=== PATIENT | male | born 1945 | race Caucasian/White ===

== ENCOUNTER → 2017-05-09 | Outpatient (CLI) | payer MEDICARE ==
[~2017-05-09] MED LIST: ASPI81CH6 CHEW; LIPI10TA PO; LOSA50TA PO; MULT1TAB46 PO
[2017-05-09 09:40] LABS: AUTOMATED NEUTROPHIL # 2.2 TH/MM3 (1.8-7.7); BASOPHIL % 0.6 % (0.0-2.0); EOSINOPHIL # 0.1 TH/MM3 (0-0.4); EOSINOPHIL % 2.6 % (0.0-4.0); HEMATOCRIT 42.9 % (39.0-51.0); HEMOGLOBIN 14.8 GM/DL (13.0-17.0); LYMPH % 30.7 % (9.0-44.0); LYMPHOCYTE # 1.3 TH/MM3 (1.0-4.8); MEAN CELL VOLUME 91.9 FL (80.0-100.0); MEAN CORPUSCULAR HEMOGLOBIN 31.8 PG (27.0-34.0); MEAN CORPUSCULAR HGB CONC 34.6 % (32.0-36.0); MEAN PLATELET VOLUME 9.7 FL (7.0-11.0); MONO % 13.2 % (0.0-8.0); MONOCYTE # 0.6 TH/MM3 (0-0.9); NEUT % 52.9 % (16.0-70.0); PLATELET COUNT 182 TH/MM3 (150-450); RED BLOOD COUNT 4.67 MIL/MM3 (4.50-5.90); WHITE BLOOD COUNT 4.2 TH/MM3 (4.0-11.0)
[2017-05-09 09:42] LABS: BILIRUBIN, URINE NEG (NEG); BLOOD, URINE NEG (NEG); GLUCOSE,URINE NEG (NEG); KETONE, URINE NEG (NEG); MUCUS URINE FEW /lpf (OCC); NITRITE,URINE NEG (NEG); PH, URINE 5.5 (5.0-8.5); URINE COLOR YELLOW (YELLW/STRAW); URINE LEUKOCYTE ESTERASE NEG (NEG)
--- NOTE | 2017-05-09 09:47 | RADRPT ---
EXAM DATE/TIME: 05/09/2017 09:34 [place] COMPARISON: No previous studies available for comparison. INDICATIONS : Evaluate for pneumonia, pneumothorax or communicable disease. Pre-op for resection descending colecto my. MEDICAL HISTORY : Hypertension. SURGICAL HISTORY : None. ENCOUNTER: Initial ACUITY: 1 day PAIN SCORE: 0/10 LOCATION: Bilateral chest FINDINGS: PA and lateral views of the chest demonstrate the lungs to be symmetrically aerated without evidence of mass, infiltrate or effusion. The cardiomediastinal contours are unremarkable. Osseous structure s are intact. CONCLUSION: No acute disease. Geovanni Carlson Jr., MD on May 09, 2017 at 9:44 Board Certified Radiologist. This report was verified electronically.
[2017-05-09 09:48] LABS: ALBUMIN 3.7 GM/DL (3.4-5.0); AST (GOT) 22 U/L (15-37); BICARBONATE 30.6 MEQ/L (21.0-32.0); BLOOD UREA NITROGEN 17 MG/DL (7-18); CALCIUM 8.8 MG/DL (8.5-10.1); CHLORIDE 109 MEQ/L (98-107); CREATININE 1.04 MG/DL (0.60-1.30); GLOMERULAR FILTRATION RATE 70 ML/MIN (>89); GLUCOSE,FASTING 100 MG/DL (74-99); SODIUM (NA) 142 MEQ/L (136-145)
[2017-05-09 09:49] LABS: ALT (GPT) 27 U/L (12-78)
[2017-05-09 09:51] LABS: ALKALINE PHOSPHATASE 84 U/L (45-117); TOTAL BILIRUBIN ADULT 0.5 MG/DL (0.2-1.0); TOTAL PROTEIN 7.3 GM/DL (6.4-8.2)
--- NOTE | 2017-05-09 22:58 | EKG ---
Date Performed: 05/09/2017 Time Performed: 08:53:16 PTAGE: 71 years EKG: Sinus bradycardia Non-specific ST/T wave changes NO PREVIOUS TRACING DOCTOR: Petra Gupta Interpretating Date/Time 05/09/2017 22:58:02
== END ==
LOC: CPRE 08:30
PROVIDERS: ATTEND Colon & Rectal Surgery
DX: Z79.01 Long term (current) use of anticoagulants (principal); Z01.811 Encounter for preprocedural respiratory examination; Z01.812 Encounter for preprocedural laboratory examination; Z01.810 Encounter for preprocedural cardiovascular examination; C20 Malignant neoplasm of rectum
CPT/HCPCS: 36415; 71046; 80053; 81001; 82378; 85025; 85610; 85730; 93005

== ENCOUNTER 2017-08-15 10:48 | Inpatient (IN) | payer MEDICARE ==
[~2017-08-15] VITALS: Ht 179.1 cm; Wt 93.0 kg
[2017-08-15] MEDS ORDERED: POVIDONE IODINE 5% (ANTISEPSIS KIT) 4 APPLICATIONS EACH NARE PRN (11:45)
[2017-08-15] MEDS ORDERED: SODIUM CHLORID 0.9% 500 ML IV PRN (11:45)
[2017-08-15] MEDS ORDERED: METRONIDAZOLE 500 MG/100 ML ISONTONIC SOLN IV SCH (11:45)
[2017-08-15] MEDS ORDERED: CHLORHEXIDINE GLUCONATE 2 % 1 PACK (2 CLOTHS) TOPICAL PRN (11:45)
[2017-08-15] MEDS ORDERED: ALVIMOPAN 12 MG CAPSULE - On Call PO SCH (11:45)
[2017-08-15] MEDS ORDERED: LACTATED RINGER'S 1000 ML IV PRN (11:45)
[2017-08-15] MEDS ORDERED: ceFAZolin 1,000 MG/NS 100 ML IV SCH ×2 (11:45)
[2017-08-15] MEDS ORDERED: METOPROLOL TARTRATE 25 MG TAB PO PRN (11:45)
[2017-08-15] MEDS ORDERED: GLYCOPYRROLATE 1 MG/5 ML SYRINGE IV PUSH ONE (12:00)
[2017-08-15] MEDS ORDERED: NEOSTIGMINE 5 MG/5 ML SYRINGE IV PUSH ONE (12:00)
[2017-08-15] MEDS ORDERED: LIDOCAINE HCL 1% PF 5 ML SYRINGE OTHER ONE (12:00)
[2017-08-15] MEDS ORDERED: hydrALAZINE HCL 20 MG/ML VIAL IV ONE (12:00)
[2017-08-15] MEDS ORDERED: DEXAMETHASONE SOD PHOS 4 MG/ML VIAL IV ONE (12:00)
[2017-08-15] MEDS ORDERED: PROPOFOL 200 MG/20 ML AMP IV ONE (12:00)
[2017-08-15] MEDS ORDERED: ROCURONIUM INJ 50 MG/5 ML SYRINGE IV PUSH ONE (12:00)
[2017-08-15] MEDS ORDERED: LABETALOL HCL 100 MG/20 ML VIAL IV ONE (12:00)
[2017-08-15 12:43] LABS: AUTOMATED NEUTROPHIL # 3.7 TH/MM3 (1.8-7.7); BASOPHIL % 0.4 % (0.0-2.0); EOSINOPHIL # 0.1 TH/MM3 (0-0.4); EOSINOPHIL % 2.6 % (0.0-4.0); HEMOGLOBIN 14.4 GM/DL (13.0-17.0); MEAN CELL VOLUME 89.6 FL (80.0-100.0); MEAN CORPUSCULAR HEMOGLOBIN 30.8 PG (27.0-34.0); MEAN CORPUSCULAR HGB CONC 34.3 % (32.0-36.0); MEAN PLATELET VOLUME 9.6 FL (7.0-11.0); MONO % 8.6 % (0.0-8.0); MONOCYTE # 0.5 TH/MM3 (0-0.9); NEUT % 69.4 % (16.0-70.0); PLATELET COUNT 211 TH/MM3 (150-450); RED BLOOD COUNT 4.68 MIL/MM3 (4.50-5.90); RED CELL DISTRIBUTION WIDTH 14.1 % (11.6-17.2); WHITE BLOOD COUNT 5.3 TH/MM3 (4.0-11.0)
[2017-08-15] MEDS ORDERED: DO NOT ADM ANY ANTICOAGULANT DRUGS PRN (14:42)
[2017-08-15] MEDS: PCA - TOTAL MG MORPHINE DELIVERED PER SHIFT SCH ×2 (14:45→21:24)
[2017-08-15] MEDS ORDERED: SODIUM CHLORIDE 0.9% FLUSH 10 ML FLUSH IV FLUSH PRN (14:45)
[2017-08-15] MEDS ORDERED: Post-op Orders (for Pharmacy) XX ONE (14:45)
[2017-08-15] MEDS ORDERED: POTASSIUM CHLOR 20 MEQ PREMIX 100 ML IV PRN (14:45)
[2017-08-15] MEDS ORDERED: ENALAPRILAT 1.25 MG/ML VIAL IV PUSH PRN (14:45)
[2017-08-15] MEDS ORDERED: MORPHINE SULFATE 30 MG/30 ML PCA IV SCH (14:45)
[2017-08-15] MEDS ORDERED: ZOLPIDEM TARTRATE 5 MG TAB PO PRN (14:45)
[2017-08-15] MEDS ORDERED: POTASSIUM CHLOR 40 MEQ PREMIX 100 ML IV PRN (14:45)
[2017-08-15] MEDS ORDERED: ONDANSETRON HCL 4 MG/2 ML VIAL IV PUSH PRN (14:45)
[2017-08-15] MEDS ORDERED: ACETAMINOPHEN/HYDROcodone 325 MG/5 MG TAB PO PRN ×2 (14:45)
[2017-08-15] MEDS ORDERED: KETOROLAC TROMETHAMINE 30 MG/ML (IVP) VIAL IVP PRN (14:45)
[2017-08-15] MEDS ORDERED: NALOXONE HCL 0.4 MG/ML AMP IV PUSH PRN (14:45)
[2017-08-15] MEDS ORDERED: BENZOCAINE 6 MG/MENTHOL 10 MG LOZENGE BUCCAL PRN (14:45)
[2017-08-15] MEDS ORDERED: *morphine SULFATE 4 MG/ML PERIprocedure ONLY ONE ×2 (14:58→15:09)
--- NOTE | 2017-08-15 15:28 | MP ---
cc: Gabo Tomlinson MD, Allan MD DATE OF OPERATION: 08/15/2017 PREOPERATIVE DIAGNOSIS: Diverting loop ileostomy. POSTOPERATIVE DIAGNOSIS: Diverting loop ileostomy. PROCEDURE PERFORMED: Takedown of ileostomy, small bowel resection with anastomosis and closure of ileostomy. ANESTHESIA: General endotracheal. SURGEON: Dr. Tomlinson. WORLD GEOGRAPHY TEACHER: Dr. Aguirre. ESTIMATED BLOOD LOSS: Minimal. OPERATIVE FINDINGS: This patient had a diverting ileostomy after having a low anterior resection for rectal cancer. At surgery, limited exploration of the abdominal cavity at the site of the ileostomy was done. There were several small bowel mesenteric adhesions to the proximal distal limb of the small bowel. These were dissected free and several mild adhesions to the abdominal wall, but these were dissected free as well. The proximal and distal small bowel above and below the stoma were divided and then anastomosis was done along the antimesenteric border of the bowel using Ethicon BENY 55 stapling device. OPERATIVE TECHNIQUE: The patient was placed on the table in the supine position. After adequate general endotracheal anesthesia, an elliptical incision was made vertically around the existing ileostomy and the dissection was taken down through the subcutaneous tissue to the rectus muscle fascia. The dissection was taken around the muscle and the peritoneal cavity was entered with the above-mentioned findings. The ileostomy site through the rectus muscle was fairly large and we were able to easily dissect the bowel free of the rectus muscle. The bowel was prolapsed out of the abdomen and there were several loops of small bowel mesentery really stuck to the proximal and distal limbs of the small bowel and these were dissected free with sharp dissection. Once this was done, we had adequate length and the small bowel mesentery was clamped, cut, and ligated and the proximal small bowel proximal to the ileostomy was divided with the Ethicon BENY 55 stapling device and the distal small bowel was divided between Roby clamps. Next, the anastomosis was created along the antimesenteric borders of the bowel using the Ethicon BENY 55 stapling device and then the enterotomy was closed with a TX-60 blue staple height stapling device. The opening in the mesentery was approximated with a running 3-0 Vicryl suture. Once hemostasis was obtained, the bowel was replaced in the abdominal cavity. Hemostasis was again checked and then the abdominal cavity was closed in layers using a single strand #1 PDS for the posterior rectus sheath and then the muscle layer was irrigated thoroughly with about 500 mL of saline solution and then the anterior rectus sheath was closed with a running single strand #1 PDS as well. The subcutaneous tissue was irrigated thoroughly with saline solution, aspirated dry using approximately 1 liter of saline solution. A relaxing incision was made just lateral to the incision to take the tension off the fascial closure. Once this was done, the skin was closed with running 3-0 Vicryl subcuticular suture and a dressing was applied. Sponge, needle and instrument counts were reported as correct. The estimated blood loss was minimal. The patient tolerated the procedure well and left the operating room in good condition. MD LUIS MIGUEL Freitas/GHADA , 02:50 PM , 03:27 PM [place]
[2017-08-15] MEDS ORDERED: *HYDROmorphone PF 0.5 MG/0.5 ML PERIprocedure ONLY ONE ×2 (15:29→15:45)
[2017-08-15 15:35] LABS: AUTOMATED NEUTROPHIL # 5.5 TH/MM3 (1.8-7.7); BASOPHIL % 0.2 % (0.0-2.0); EOSINOPHIL # 0.1 TH/MM3 (0-0.4); EOSINOPHIL % 1.6 % (0.0-4.0); HEMATOCRIT 40.9 % (39.0-51.0); HEMOGLOBIN 13.9 GM/DL (13.0-17.0); LYMPHOCYTE # 1.2 TH/MM3 (1.0-4.8); MEAN CELL VOLUME 90.9 FL (80.0-100.0); MEAN CORPUSCULAR HEMOGLOBIN 30.9 PG (27.0-34.0); MEAN PLATELET VOLUME 9.6 FL (7.0-11.0); MONO % 7.7 % (0.0-8.0); MONOCYTE # 0.6 TH/MM3 (0-0.9); NEUT % 74.5 % (16.0-70.0); PLATELET COUNT 195 TH/MM3 (150-450); RED CELL DISTRIBUTION WIDTH 14.4 % (11.6-17.2); WHITE BLOOD COUNT 7.4 TH/MM3 (4.0-11.0)
[2017-08-15] MEDS: D5-LR + KCL 20 MEQ INJ 1,000 ML IV SCH ×2 (15:45→21:24)
[2017-08-15 16:01] LABS: BICARBONATE 25.4 MEQ/L (21.0-32.0); CALCIUM 8.8 MG/DL (8.5-10.1)
[2017-08-15] MEDS: METOCLOPRAMIDE HCL 10 MG/2 ML VIAL IVS SCH ×2 (18:51→23:33)
[2017-08-15 20:00] VITALS: BP 110/59; PULSE 60; RESP 18; TEMP 97.9; O2SAT 93
[2017-08-15] MEDS: DEXT 5%-NACL 0.9% 1000 ML INJ 1,000 ML IV SCH (20:00)
[2017-08-15] MEDS: SODIUM CHLORIDE 0.9% FLUSH 10 ML FLUSH IV FLUSH SCH (21:23)
[2017-08-15] MEDS: FUROSEMIDE 20 MG/2 ML VIAL IV PUSH SCH (21:23)
[2017-08-15] MEDS: metroNIDAZOLE 500 MG INJ 100 ML IV SCH (21:24)
[2017-08-15] MEDS: ceFAZolin 2 GM PREMIX 50 ML IV SCH (21:24)
[2017-08-16] VITALS: BP 119/60; PULSE 65; RESP 18; TEMP 97.2; O2SAT 93
[2017-08-16] MEDS: DEXT 5%-NACL 0.9% 1000 ML INJ 1,000 ML IV SCH ×3 (01:03→13:44)
[2017-08-16 04:00] VITALS: BP 106/55; PULSE 62; RESP 18; TEMP 98.1; O2SAT 94
[2017-08-16] MEDS: D5-LR + KCL 20 MEQ INJ 1,000 ML IV SCH ×3 (04:09→22:20)
[2017-08-16] MEDS: ceFAZolin 2 GM PREMIX 50 ML IV SCH ×2 (04:09→13:25)
[2017-08-16] MEDS: PCA - TOTAL MG MORPHINE DELIVERED PER SHIFT SCH ×3 (04:10→22:00)
[2017-08-16] MEDS: METOCLOPRAMIDE HCL 10 MG/2 ML VIAL IVS SCH ×3 (04:10→17:11)
[2017-08-16] MEDS: metroNIDAZOLE 500 MG INJ 100 ML IV SCH ×2 (04:10→13:26)
[2017-08-16 07:25] LABS: AUTOMATED NEUTROPHIL # 10.4 TH/MM3 (1.8-7.7); BASOPHIL % 0.1 % (0.0-2.0); HEMATOCRIT 37.4 % (39.0-51.0); HEMOGLOBIN 12.8 GM/DL (13.0-17.0); LYMPH % 5.1 % (9.0-44.0); LYMPHOCYTE # 0.6 TH/MM3 (1.0-4.8); MEAN CELL VOLUME 89.7 FL (80.0-100.0); MEAN CORPUSCULAR HEMOGLOBIN 30.7 PG (27.0-34.0); MEAN CORPUSCULAR HGB CONC 34.3 % (32.0-36.0); MEAN PLATELET VOLUME 9.9 FL (7.0-11.0); MONO % 9.4 % (0.0-8.0); MONOCYTE # 1.1 TH/MM3 (0-0.9); NEUT % 85.4 % (16.0-70.0); PLATELET COUNT 189 TH/MM3 (150-450); RED BLOOD COUNT 4.17 MIL/MM3 (4.50-5.90); RED CELL DISTRIBUTION WIDTH 14.5 % (11.6-17.2); WHITE BLOOD COUNT 12.2 TH/MM3 (4.0-11.0)
[2017-08-16 07:49] LABS: BICARBONATE 26.3 MEQ/L (21.0-32.0); CALCIUM 8.6 MG/DL (8.5-10.1); CREATININE 1.07 MG/DL (0.60-1.30)
[2017-08-16 08:00] VITALS: BP 113/63; PULSE 64; RESP 17; TEMP 98.9; O2SAT 96
[2017-08-16] MEDS: SODIUM CHLORIDE 0.9% FLUSH 10 ML FLUSH IV FLUSH SCH ×2 (08:40→22:21)
[2017-08-16] MEDS: ASPIRIN 81 MG CHEW TAB CHEW SCH (08:41)
[2017-08-16] MEDS: ALVIMOPAN 12 MG CAPSULE - Post-op dosing PO SCH ×2 (08:42→22:20)
[2017-08-16] MEDS: ATORVASTATIN 10 MG TAB PO SCH (08:42)
[2017-08-16] MEDS: LOSARTAN 50 MG TAB PO SCH (08:42)
[2017-08-16] MEDS: PANTOPRAZOLE SODIUM 40 MG VIAL IVP SCH (08:43)
[2017-08-16] MEDS: FUROSEMIDE 20 MG/2 ML VIAL IV PUSH SCH ×2 (08:46→22:21)
[2017-08-16 12:00] VITALS: BP 109/63; PULSE 64; RESP 17; TEMP 98.3; O2SAT 94
--- NOTE | 2017-08-16 13:54 | HHI.PR ---
Subjective Remarks Tolerating FLD. No N or V. No BMs Objective Vital Signs Date Time Temp Pulse Resp B/P (MAP) Pulse Ox O2 Delivery O2 Flow Rate FiO2 08/16/17 12:00 98.3 64 17 109/63 (78) 94 08/16/17 08:00 98.9 64 17 113/63 (80) 96 08/16/17 08:00 96 21 08/16/17 04:10 18 08/16/17 04:00 98.1 62 18 106/55 (72) 94 08/16/17 00:00 97.2 65 18 119/60 (79) 93 08/15/17 21:24 18 08/15/17 20:46 Nasal Cannula 2.00 08/15/17 20:00 97.9 60 18 110/59 (76) 93 08/15/17 18:45 67 15 115/65 (82) 96 Nasal Cannula 2 08/15/17 17:00 55 15 132/67 (88) 94 Nasal Cannula 2 08/15/17 16:25 52 14 116/62 (80) 97 Nasal Cannula 2 08/15/17 15:59 14 08/15/17 15:45 97.5 56 14 122/62 (82) 97 Nasal Cannula 2 08/15/17 15:30 56 14 139/69 (92) 97 Nasal Cannula 2 08/15/17 15:15 55 14 145/82 (103) 95 Nasal Cannula 2 08/15/17 15:00 58 12 142/78 (99) 97 Nasal Cannula 2 08/15/17 14:45 63 14 140/80 (100) 96 Nasal Cannula 2 08/15/17 14:45 14 08/15/17 14:42 97.7 69 12 142/74 (96) 96 Simple Mask 6 I/O 08/15/17 08/15/17 08/15/17 08/16/17 08/16/17 08/16/17 07:00 15:00 23:00 07:00 15:00 23:00 Intake Total 1400 ml 150 ml 1270 ml Output Total 1150 ml Balance 1400 ml 150 ml 120 ml Intake Oral 120 ml IV Total 150 ml 1150 ml Other 1400 ml Output Urine Total 1150 ml # Bowel Movements 0 Result Diagram: 08/16/17 0647 08/16/17 0647 Objective Remarks VS-S Abd: soft,dressing dry Labs and I&Os-OK Assessment and Plan Assessment and Plan Stable POD#1 Ileostomy closure on FLD Advance diet to Regular in AM IVs to 75/hr D/C JOURNAL ENTRY AUDIT CLERK tomorrow D/C dressing tomorrow Gabo Tomlinson MD August 16, 2017 13:54
[2017-08-16 16:00] VITALS: BP 113/56; PULSE 64; RESP 17; TEMP 97.9; O2SAT 94
[2017-08-16 20:00] VITALS: BP 112/57; PULSE 77; RESP 20; TEMP 98.9; O2SAT 95
[2017-08-16] MEDS ORDERED: ALVIMOPAN 12 MG CAPSULE PO SCH (21:00)
[2017-08-17] VITALS: BP 142/77; PULSE 85; RESP 20; TEMP 98.7; O2SAT 95
[2017-08-17] MEDS: METOCLOPRAMIDE HCL 10 MG/2 ML VIAL IVS SCH ×2 (00:25→05:39)
[2017-08-17] MEDS: DEXT 5%-NACL 0.9% 1000 ML INJ 1,000 ML IV SCH (02:14)
[2017-08-17 04:00] VITALS: BP 130/60; PULSE 77; RESP 20; TEMP 98.7; O2SAT 94
[2017-08-17] MEDS: PCA - TOTAL MG MORPHINE DELIVERED PER SHIFT SCH (05:39)
[2017-08-17 06:02] LABS: AUTOMATED NEUTROPHIL # 8.3 TH/MM3 (1.8-7.7); BASOPHIL % 0.2 % (0.0-2.0); EOSINOPHIL # 0.2 TH/MM3 (0-0.4); EOSINOPHIL % 1.7 % (0.0-4.0); HEMATOCRIT 37.4 % (39.0-51.0); LYMPHOCYTE # 0.9 TH/MM3 (1.0-4.8); MEAN CELL VOLUME 89.8 FL (80.0-100.0); MEAN CORPUSCULAR HEMOGLOBIN 31.3 PG (27.0-34.0); MEAN CORPUSCULAR HGB CONC 34.8 % (32.0-36.0); MEAN PLATELET VOLUME 10.1 FL (7.0-11.0); MONO % 9.8 % (0.0-8.0); NEUT % 79.3 % (16.0-70.0); PLATELET COUNT 171 TH/MM3 (150-450); RED BLOOD COUNT 4.16 MIL/MM3 (4.50-5.90); RED CELL DISTRIBUTION WIDTH 14.4 % (11.6-17.2); WHITE BLOOD COUNT 10.5 TH/MM3 (4.0-11.0)
[2017-08-17 06:26] LABS: BICARBONATE 28.6 MEQ/L (21.0-32.0); CALCIUM 8.5 MG/DL (8.5-10.1); CREATININE 0.97 MG/DL (0.60-1.30)
[2017-08-17 08:00] VITALS: BP 90/63; PULSE 81; RESP 16; TEMP 98.4; O2SAT 94
[2017-08-17] MEDS: SODIUM CHLORIDE 0.9% FLUSH 10 ML FLUSH IV FLUSH SCH (09:00)
[2017-08-17] MEDS: FUROSEMIDE 20 MG/2 ML VIAL IV PUSH SCH (09:32)
[2017-08-17] MEDS: ASPIRIN 81 MG CHEW TAB CHEW SCH (09:32)
[2017-08-17] MEDS: PANTOPRAZOLE SODIUM 40 MG VIAL IVP SCH (09:33)
[2017-08-17] MEDS: LOSARTAN 50 MG TAB PO SCH (09:33)
[2017-08-17] MEDS: ATORVASTATIN 10 MG TAB PO SCH (09:33)
[2017-08-17] MEDS: ALVIMOPAN 12 MG CAPSULE - Post-op dosing PO SCH (09:33)
[2017-08-17 12:00] VITALS: BP 110/66; PULSE 88; RESP 16; TEMP 99.1; O2SAT 94
[2017-08-17] MEDS ORDERED: HYDR-3516 PO (12:09)
[2017-08-17] MEDS ORDERED: METOCLOPRAMIDE HCL 10 MG/2 ML VIAL IVS PRN (12:15)
== END 2017-08-17 14:16 | disposition home or self-care (01) | DRG 331 ==
LOC: HSDI 10:48 → N07B 19:06
PROVIDERS: ADMIT Colon & Rectal Surgery; ATTEND Colon & Rectal Surgery
PROC: 0DBB0ZZ Excision of Ileum, Open Approach (ICD-10-PCS; principal; 2017-08-15 13:12)
DX: Z43.2 Encounter for attention to ileostomy (principal); K66.0 Peritoneal adhesions (postprocedural) (postinfection); Z85.048 Personal history of other malignant neoplasm of rectum, rectosigmoid junction, and anus
CPT/HCPCS: 80048; 85025; 86850; 86900; 86901; 88304; 88307; 94150; C9113; J0360; J0690; J1100; J1170; J1940; J2270; J2710; J2765; J3010; J3480